=== PATIENT | male | born 1940 | race Caucasian/White ===

== ENCOUNTER 2017-02-05 06:20 | Day surgery (SDC) | payer MEDICARE ==
[~2017-02-05] VITALS: Ht 182.9 cm; Wt 58.2 kg
[2017-02-05] MEDS ORDERED: SODIUM CHLORIDE 0.9% 1,000 ML IV ONE ×2 (06:33→07:00)
[2017-02-05] MEDS ORDERED: ADV250 IH (07:05)
[2017-02-05] MEDS ORDERED: ATEN-187 PO (07:05)
[2017-02-05] MEDS ORDERED: AMLO10TA55 PO (07:05)
[2017-02-05] MEDS ORDERED: RANI150T7 PO (07:05)
[2017-02-05] MEDS ORDERED: IPRA3AMP4 NEB (07:05)
[2017-02-05] MEDS ORDERED: HYDR-3291 PO (07:05)
[2017-02-05] MEDS ORDERED: LEVO150T11 PO (07:05)
[2017-02-05] MEDS ORDERED: FLUO-126 PO (07:05)
[2017-02-05] MEDS ORDERED: ATOR80TA76 PO (07:05)
[2017-02-05] MEDS ORDERED: BACL20TA PO (07:05)
[2017-02-05] MEDS ORDERED: FentaNYL CITRATE-PF 100 MCG/2 ML VIAL ONE (07:57)
[2017-02-05] MEDS ORDERED: MIDAZOLAM HCL 2 MG/2 ML VIAL ONE (07:57)
[2017-02-05] MEDS ORDERED: MethylPREDNISolone SOD SUCC 125 MG/2 ML VIAL IVP ONE (08:45)
[2017-02-05] MEDS ORDERED: MethylPREDNISolone SOD SUCC 125 MG/2 ML VIAL ONE (09:11)
[2017-02-05] MEDS ORDERED: LIDOCAINE HCL 2% 30 ML JELLY TP ONE (17:35)
[2017-02-05] MEDS ORDERED: LIDOCAINE HCL 4% 50 ML SOLUTION TP ONE (17:35)
[2017-02-05] MEDS ORDERED: ALBUTEROL SULFATE 2.5 MG/0.5 ML NEB SOLUTION NEB ONE (17:35)
[2017-02-05] MEDS ORDERED: BENZOCAINE 20% 50 MCG/SPRAY 57 GM TP ONE (17:35)
[2017-02-05] MEDS ORDERED: OXYGEN THERAPY IH SCH (20:00)
== END 2017-02-05 10:10 | disposition home or self-care (01) ==
LOC: SURGERY 06:20
PROVIDERS: ATTEND Internal Medicine Critical Care Medicine
DX: J38.4 Edema of larynx (principal); B37.0 Candidal stomatitis; J44.9 Chronic obstructive pulmonary disease, unspecified; M54.9 Dorsalgia, unspecified; F17.210 Nicotine dependence, cigarettes, uncomplicated; Z98.890 Other specified postprocedural states; Z87.442 Personal history of urinary calculi
CPT/HCPCS: 31623; 31624; 71010; 87015 ×2; 87070; 87101; 87205; 87220; 88108; 88312; J2250; J2930; J3010; J7030